=== PATIENT | female | born 1975 | race African-American/Black ===

== ENCOUNTER 2017-08-30 16:52 | Emergency (ER) | payer BC ==
[~2017-08-30] VITALS: Ht 170.2 cm; Wt 90.3 kg
[~2017-08-30 16:52] MED LIST: CIPR-260 PO; GABA-531 PO; LISI-600 PO
[2017-08-30 17:00] VITALS: BP_SYST 127
[2017-08-30 17:37] LABS: BILIRUBIN,URINE NEGATIVE (NEGATIVE); CLARITY/URINE CLEAR (CLEAR); COLOR,URINE YELLOW (YELLOW); GLUCOSE,URINE NEGATIVE (NEGATIVE); KETONES,URINE NEGATIVE (NEGATIVE); LEUKOCYTE ESTERASE ,URINE NEGATIVE (NEGATIVE); NITRITE, URINE NEGATIVE (NEGATIVE); PROTEIN URINE NEGATIVE (NEGATIVE); UROBILINOGEN,URINE 0.2 (0.2-1.0)
[2017-08-30 17:45] LABS: BLOOD, URINE TRACE (NEGATIVE)
[2017-08-30 17:48] LABS: BACTERIA,URINE RARE /HPF (None Seen); MUCUS,URINE None Seen /LPF (None Seen); RBC,URINE 0-3 /HPF (0-3); WBC,URINE 0-3 /HPF (0-3)
[2017-08-30 17:54] LABS: BASOPHILS # (AUTO) 0.1 K/uL (0.0-0.2); BASOPHILS % (AUTO) 0.8 % (0.0-2.0); EOSINOPHILS # (AUTO) 0.2 K/uL (0.0-0.4); EOSINOPHILS % (AUTO) 1.4 % (0.0-4.0); HEMATOCRIT 43.7 % (36-48); HEMOGLOBIN 14.5 g/dL (12.0-16.0); LYMPHOCYTES # (AUTO) 3.2 K/uL (1.0-5.5); LYMPHOCYTES % (AUTO) 27.4 % (20.5-51.5); MEAN CORPUSCULAR HEMOGLOBIN 29 pg (27-31); MEAN CORPUSCULAR HGB CONC 33 % (32-36); MEAN CORPUSCULAR VOLUME 86 fL (79.0-98.0); MONOCYTES # (AUTO) 0.4 K/uL (0.0-1.0); MONOCYTES % (AUTO) 3.7 % (1.7-9.3); NEUTROPHILS # (AUTO) 7.8 K/uL (1.8-7.7); NEUTROPHILS % (AUTO) 66.7 % (40.0-70.0); PLATELET COUNT (AUTO) 286 K/uL (130-430); RED BLOOD CELL COUNT(AUTO) 5.06 MIL/uL (4.2-6.2); RED CELL DISTRIBUTION WIDTH 12.6 % (9.0-15.0); WHITE BLOOD COUNT (AUTO) 11.7 K/uL (4.8-10.8)
[2017-08-30 18:02] LABS: CALCIUM 9.9 mg/dL (8.4-11.0); CREATININE 0.76 mg/dL (0.55-1.30); POTASSIUM 3.8 mmol/L (3.5-5.1)
[2017-08-30 18:07] LABS: ALBUMIN 3.9 g/dL (3.4-4.8); TOTAL BILIRUBIN 0.6 mg/dL (0.0-1.0)
[2017-08-30] MEDS: NACL 0.9% 1,000 ML IV ONE (18:07)
[2017-08-30] MEDS: MAGNESIUM CITRATE 300 ML ORAL SOLUTION PO ONE (19:11)
[2017-08-30 19:22] VITALS: BP_SYST 125
== END 2017-08-30 19:22 | disposition home or self-care (01) ==
LOC: SED 16:52
DX: R10.9 Unspecified abdominal pain (principal); I10 Essential (primary) hypertension; K21.9 Gastro-esophageal reflux disease without esophagitis; M79.7 Fibromyalgia; Z88.1 Allergy status to other antibiotic agents; Z88.5 Allergy status to narcotic agent; Z88.8 Allergy status to other drugs, medicaments and biological substances; Z91.040 Latex allergy status; Z90.710 Acquired absence of both cervix and uterus
CPT/HCPCS: 36415; 74018; 80053; 81000; 81025; 83690; 85025; 96360; 99285; J7030

== ENCOUNTER 2017-12-19 20:03 | Emergency (ER) | payer BC ==
[~2017-12-19] VITALS: Ht 170.2 cm; Wt 86.2 kg
[2017-12-19 20:08] VITALS: BP_SYST 135
[2017-12-19] MEDS ORDERED: NACL 0.9% 1,000 ML IV ONE (22:47)
[2017-12-19] MEDS ORDERED: GLUCAGON,HUMAN RECOMBINANT 1 MG VIAL IVP ONE (23:00)
[2017-12-19] MEDS ORDERED: DIAZEPAM 10 MG/2 ML DISP.SYRIN IVP ONE (23:00)
[2017-12-19] MEDS ORDERED: DIAZEPAM 10 MG/2 ML DISP.SYRIN ONE (23:25)
[2017-12-20] MEDS ORDERED: ONDANSETRON 4 MG ODT TAB PO ONE (00:45)
[2017-12-20 00:51] VITALS: BP_SYST 125
== END 2017-12-20 00:51 | disposition home or self-care (01) ==
LOC: SED 20:03
DX: R11.10 Vomiting, unspecified (principal); R07.0 Pain in throat; R13.10 Dysphagia, unspecified; K21.9 Gastro-esophageal reflux disease without esophagitis; I10 Essential (primary) hypertension; M79.7 Fibromyalgia; Z88.6 Allergy status to analgesic agent; Z88.1 Allergy status to other antibiotic agents; Z91.040 Latex allergy status; Z88.8 Allergy status to other drugs, medicaments and biological substances; Z79.899 Other long term (current) drug therapy
CPT/HCPCS: 74220; 93005; 99284; J3360; J1610; J7030